=== PATIENT | female | born 1990 | race Two or more races ===

== ENCOUNTER 2025-08-04 12:28 | Emergency (ER) | payer SELFPAY ==
[2025-08-04 12:28] VITALS: BMI 25.0
--- NOTE | 2025-08-04 12:47 | XR_ITS ---
Examination: Wrist, left 3 views Technique: Wrist AP, oblique, lateral 3 views Date and time of exam: August 04, 2025, 12:50 p.m. INDICATIONS: Wrist pain beginning 2 weeks ago. FINDINGS: No fracture or dislocation No erosive or other significant arthritic change IMPRESSION: No fracture or dislocation
--- NOTE | 2025-08-04 12:49 | EDNOTE_ITS ---
Upper Extremity Injury RME/HPI General Chief Complaint: Hand/Wrist Problems Stated Complaint: LEFT WRIST PAIN Time Seen by Provider: 08/04/25 12:35 Arrival date/time: 08/04/25 12:28 RME / HPI RME / HPI narrative: See [facility] for Dr. Bo's HPI documentation. Related Data Home Medications ?Medication ?Instructions ?Recorded ?Confirmed Vits W-Ca,Fe,Fa(<1MG) 1 tab PO QDAY #0 tabs 0 05/22/14 () Previous Rx's ?Medication ?Instructions ?Recorded acetaminophen 300 mg-codeine 30 mg 2 tab PO Q8H PRN pa in #20 tabs 08/04/25 tablet ibuprofen 600 mg tablet 600 mg PO TID PRN fever or p ain 08/04/25 #30 tabs lidocaine 5 % topical patch 1 patch topical QDAY PRN p ain #30 08/04/25 (Lidoderm) ea Allergies Allergy/AdvReac Type Severity Reaction Status Date / Time No Known Allergies Allergy Verified 08/04/25 12:31 Review of Systems Review of Systems Systems Reviewed: All systems reviewed, normal except as documented Past Medical History Social History SMOKING STATUS: Never smoker ED Exam Narrative Physical exam: See [facility] for Dr. Bo's physical exam documentation. Course Quality Measures none Orders Category Date Time Status Miscellaneous Nursing Order NOW Care 08/04/25 13:29 Completed XR wrist comp LT min 3V Stat Exams 08/04/25 12:47 Completed Vital Signs Vital signs: Vital Signs Temperature 98.2 F 08/04/25 12:58 Pulse Rate 83 08/04/25 12:58 Respiratory Rate 16 08/04/25 12:58 Blood Pressure 122/71 08/04/25 12:58 Pulse Oximetry (%) 99 08/04/25 12:58 Oxygen Delivery Method Room Air 08/04/25 12:58 Pulse ox is 99% on room air which is adequate. Extremity Injury MDM Narrative [facility] Narrative:: This section includes all my notes and documentations, including HPI, PE, and ED course. 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 She reports severe pain with any slight movement. Some swelling. Can move the fingers. No other complaints. ROS: All negative except as documented in HPI. Physical Exam: General: Alert and oriented. Eyes: Conjunctivae and lids clear. ENT: No nasal congestion. Neck: Supple. Lungs: No respiratory distress. Skin: Warm and dry. Neuro: Alert and oriented X 3. Left Wrist: Tenderness and edema with limited range of motion due to pain. Distally, no NVT injury. I reviewed all diagnostic test results: My interpretation of the wrist x-ray is: No fracture or dislocation. At this point, diagnoses include: Left wrist sprain Treatment here included: Wrist splint Recommended a trial of outpatient treatment. Based on my best medical judgment, made decision no further evaluation or treatment indicated at this time. Patient understands and agrees to the discharge instructions customized and printed, see below. Discharge Instructions from Dr. Bo printed for you: 1. You sprained your left wrist (injury of soft tissue structures, such as ligaments). 2. With rest and proper treatment you will get better. 3. For rest needed to heal, wear the wrist splint for 3 days then as needed. 4. Elevate above the heart level for 3 days as much as possible. Placing your hand on your head is a good method. 5. Apply ice for 20 minutes every 2-3 hours today and tomorrow. 6. Ibuprofen 600 mg every 6-8 hours today and tomorrow to decrease inflammation then as needed. Tylenol with codeine and lidocaine patches as needed. 7. See a private doctor on 08/08/2025 for recheck. If not significant better, ask for MRI imaging of the wrist. To make sure there is no serious tear needing surgery. 8. Seek immediate medical care with worsening or with any concerns. Evangelista Bo MD Patient data External records reviewed:: [facility] previous records Clinical information provided by:: patient Social determinants that could affect healthcare access:: none Patient has the following chronic illnesses:: None reported How is presenting disease/condition affected by chronic disease/condition?: no chronic disease Evaluation data The following diagnostics were reviewed and interpreted by me:: radiology exam(s) Lab and/or radiology exams considered but not ordered:: None Interpretation Summary: I reviewed all diagnostic test results: My interpretation of the wrist x-ray is: No fracture or dislocation Medications / Prescriptions Medications or Prescriptions considered but not ordered:: None Medication administrations:: No medications administered Consultations Consultation(s) initiated? (list below): No Diagnosis Upper Extremity Injury Differential Diagnosis: sprain and strain of wrist, fracture of wrist and fracture of hand Most likely diagnosis given after review of the tests above:: Left wrist sprain Admission Indicated Admission indicated?: not indicated Explain why admission is indicated or not indicated:: With no condition needing emergent intervention, there was no indication for admission. Admission Request Was there a request for admission?: No Disposition Plan Disposition Plan: Discharge Discharge Attestation Discharge Attestation: The patient and all family members were given an opportunity to ask questions and understood the discharge instructions. Discharge instructions specifically effects, indications for sooner follow up or return to the emergency department, and the expected course of current diagnosis. Patient condition: Stable Discharge Plan Plan Patient Disposition: HOME (Self Care) Prescriptions/Referrals Prescriptions/Med Rec: New acetaminophen-codeine 300-30 mg tablet 2 tab PO Q8H MDD 6 PRN (Reason: pain) Qty: 20 0RF lidocaine [Lidoderm] 5 % adhesive patch,medicated 1 patch topical QDAY PRN (Reason: pain) Qty: 30 0RF Rx Instructions: leave on most painful area for up to 12 hrs ibuprofen 600 mg tablet 600 mg PO TID PRN (Reason: fever or pain) Qty: 30 0RF No Action Vits W-Ca,Fe,Fa(<1MG) () 1 TAB tablet 1 tab PO QDAY Qty: 0 Problem List Clinical Impression: Left wrist sprain Patient/Caregiver Discharge Instructions Discharge Activity: activity as tolerated Education Materials: ED Wrist Sprain Additional Instructions: Discharge Instructions from Dr. Bo printed for you: 1. You sprained your left wrist (injury of soft tissue structures, such as ligaments). 2. With rest and proper treatment you will get better. 3. For rest needed to heal, wear the wrist splint for 3 days then as needed. 4. Elevate above the heart level for 3 days as much as possible. Placing your hand on your head is a good method. 5. Apply ice for 20 minutes every 2-3 hours today and tomorrow. 6. Ibuprofen 600 mg every 6-8 hours today and tomorrow to decrease inflammation then as needed. Tylenol with codeine and lidocaine patches as needed. 7. See a private doctor on 08/08/2025 for recheck. If not significant better, ask for MRI imaging of the wrist. To make sure there is no serious tear needing surgery. 8. Seek immediate medical care with worsening or with any concerns. Print Language: [place] Stand Alone Forms: Denita Award Info., Work/School Release, Patient Portal Info Letter
[2025-08-04 12:58] VITALS: BP 122/71; PULSE 83; RESP 16; TEMP 36.8; O2SAT 99
[2025-08-04 14:15] VITALS: PULSE 80; RESP 18; O2SAT 98
== END 2025-08-04 14:43 | disposition home or self-care (01) ==
LOC: SERX 14:32
PROVIDERS: Emergency Provider Emergency Medicine
DX: S63.502A Unspecified sprain of left wrist, initial encounter (principal); X50.0XXA Overexertion from strenuous movement or load, initial encounter; Y93.F2 Activity, caregiving, lifting; Y92.129 Unspecified place in nursing home as the place of occurrence of the external cause; Y99.0 Civilian activity done for income or pay
CPT/HCPCS: 73110; 99282